=== PATIENT | male | born 1940 | race Caucasian/White ===

== ENCOUNTER → 2017-06-29 | Outpatient (CLI) | payer OTHER, MEDICARE | LOC: BHFA 13:00 | PROVIDERS: ATTEND Internal Medicine Cardiovascular Disease | DX: I25.10 Atherosclerotic heart disease of native coronary artery without angina pectoris (principal); I10 Essential (primary) hypertension ==

== ENCOUNTER 2017-08-30 07:19 | Observation (INO) | payer OTHER, MEDICARE ==
[2017-08-30] MEDS ORDERED: NS 1,000 ML IV ONE (07:23)
--- NOTE | 2017-08-30 07:50 | CPEKG ---
Heart Rate: 84 RR Interval: 714 QRSD Interval: 106 QT Interval: 368 QTC Interval: 436 QRS [place]: 0 T Wave [place]: -73 EKG Severity - ABNORMAL ECG - EKG Impression: AFIB/FLUT AND V-PACED COMPLEXES EKG Impression: NONSPECIFIC T ABNORMALITIES, DIFFUSE LEADS EKG Impression: ATRIAL FIB/FLUTTER IS NEW IN COMPARISON TO PRIOR ECG Electronically Signed By: Tomás Mitchell 02-Sep-2017 08:49:56
[2017-08-30] MEDS ORDERED: LIDOCAINE 1% 300 MG/30 ML SDV ONE (08:14)
[2017-08-30] MEDS ORDERED: HEPARIN 10,000 UNIT/10 ML MDV ONE (08:14)
[2017-08-30] MEDS ORDERED: BUPIVACAINE 0.5% 30 ML SDV ONE (08:14)
[2017-08-30 08:15] LABS: % IMMATURE GRANULYOCYTES 0.3 % (0.0-1.1); ABSOLUTE IMMATURE GRANULOCYTES 0.01 10^3/uL (0.00-0.10); ADD DIFF? NO; ADD MORPH? NO; ADD SCAN? NO; ATYPICAL LYMPHOCYTE FLAG 0 (0-99); FRAGMENT RBC FLAG 0 (0-99); HEMATOCRIT 32.7 % (40.0-51.0); HEMOGLOBIN 10.4 g/dL (13.7-17.5); LEFT SHIFT FLG 0 (0-99); LIPEMIA HEMOLYSIS FLAG 80 (0-99); MEAN CELL HEMOGLOBIN 34.6 pg (27.9-34.1); MEAN CELL HEMOGLOBIN CONCENTR. 31.8 g/dL (32.4-36.7); MEAN CELL VOLUME 108.6 fL (81.5-99.8); MEAN PLATELET VOLUME 9.3 fL (8.7-11.7); PLATELET CLUMPS FLAG 10 (0-99); PLATELET COUNT 111 10^3/uL (150-400); RED BLOOD CELL COUNT 3.01 10^6/uL (4.40-6.38); RED CELL DISTRIBUTION WIDTH 14.8 % (11.5-15.2)
[2017-08-30] MEDS ORDERED: ISOPROTERENOL HCL/D5W 0.2 MG/50 ML BAG IV ONE (08:15)
[2017-08-30 08:24] LABS: INR 1.17 (0.83-1.16); PROTIME(PATIENT) 14.9 SEC (12.0-15.0)
[2017-08-30 08:25] LABS: APTT 38.3 SEC (23.0-38.0)
[2017-08-30 08:30] LABS: ANION GAP 11 mEq/L (8-16); CALCIUM 9.5 mg/dL (8.5-10.4); CARBON DIOXIDE 21 mEq/l (22-31); CHLORIDE 110 mEq/L (97-110); CREATININE 2.5 mg/dL (0.7-1.3); GLOMERULAR FILTRATION RATE 25; GLUCOSE 98 mg/dL (70-100); MAGNESIUM 1.9 mg/dL (1.6-2.3); POTASSIUM 4.4 mEq/L (3.5-5.2); SODIUM 142 mEq/L (134-144)
--- NOTE | 2017-08-30 08:58 | PDANEPAE ---
ANE History of Present Illness a flutter ANE Past Medical History - Cardiovascular History Hx Hypertension: Yes Hx Arrhythmias: Yes Hx Coronary Artery / Peripheral Vascular Disease: Yes - Pulmonary History Hx Sleep Apnea: Yes - Endocrine History Hx Diabetes: Yes - Chronic Pain History Chronic Pain: No ANE Review of Systems Review of Systems: - Exercise capacity METS (RN): 4 METS - Pacemaker Date Pacemaker Last Checked: 05/29/2015 ANE Patient History - Allergies Allergies/Adverse Reactions: No Known Allergies Allergy (Unverified 09/02/14 07:37) - Home Medications Home Medications: Cetirizine [ZyrTEC 10 mg (*)] 10 mg PO DAILY PRN 09/02/14 [Last Taken 05/13/15] Furosemide [Lasix 20 MG (*)] 20 mg PO BID 09/02/14 [Last Taken 05/26/15 18:00] Niacin ER [Niaspan 1000 mg (*)] 1,000 mg PO HS 09/02/14 [Last Taken 05/26/15 22: 00] Olmesartan Medoxomil [Benicar] 40 mg PO DAILY 09/02/14 [Last Taken 05/27/15 06: 00] Pioglitazone HCl [Actos] 45 mg PO DAILY 09/02/14 [Last Taken 05/27/15 06:00] amLODIPine BESYLATE [Norvasc 5 mg (*)] 5 mg PO HS 09/02/14 [Last Taken 05/26/15 22:00] glipiZIDE [Glipizide] 5 mg PO DAILY 09/02/14 [Last Taken 05/26/15 18:00] Insulin Regular, Human [Afrezza] 4 unit IH TIDMEAL 05/27/15 [Last Taken 18:00] Rosuvastatin Calcium [Crestor 20mg (*)] 20 mg PO DAILY18 05/27/15 [Last Taken 18:00] clonIDINE [Catapres (*)] 0.2 mg PO DAILY 05/27/15 [Last Taken 05/26/15 14:00] Apixaban [Eliquis] 2.5 mg PO BID 08/27/17 [Last Taken Unknown] Azelastine [Astelin Nasal [place] (RX)] 1 sprays EACH[place]ARE BID 08/27/17 [Last Taken Unknown] Cholecalciferol Vit D3 [Vitamin D3 (*)] 5,000 units PO DAILY 08/27/17 [Last Taken Unknown] Cyanocobalamin [Vitamin B12 (*)] 1,000 mcg PO DAILY 08/27/17 [Last Taken Unknown ] Herbals/Supplements -Info Only 1 ea PO DAILY 08/27/17 [Last Taken Unknown] Ipratropium 0.03% Nasal [Atrovent 0.03% Nasal (*)] 1 - 2 sprays [place] DAILY PRN 08/27/17 [Last Taken Unknown] Sodium Polystyrene Sulf [Kionex SPS Powder (*)] 1 each PO DAILY 08/27/17 [Last Taken Unknown] - Smoking Hx Smoking Status: Never smoked ANE Labs/Vital Signs - Labs Result Diagrams: 08/30/17 08:09 08/30/17 08:09 - Vital Signs Respiratory Rate: 11 Height: 177.8 cm Weight: 87.3 kg ANE Physical Exam - Airway Neck exam: FROM Mallampati Score: Class 1 Mouth exam: normal dental/mouth exam - Pulmonary Pulmonary: no respiratory distress - Cardiovascular Cardiovascular: regular rate and rhythym - ASA Status ASA Status: III ANE Anesthesia Plan Anesthesia Plan: general endotracheal anesthesia
[2017-08-30] MEDS ORDERED: MIDAZOLAM 2 MG/2 ML VIAL ONE (09:02)
[2017-08-30] MEDS ORDERED: MIDAZOLAM 2 MG/2 ML VIAL IVP ONE (09:23)
--- NOTE | 2017-08-30 09:24 | PDHPUP ---
History & Physical Update H&P update statement: This history and physical update is based on an assessment of the patient which was completed after admission or registration (within 24 hours), but prior to the surgery/procedure. H&P update: H&P reviewed & patient examined, no change in patient's condition since H&P completed
[2017-08-30] MEDS ORDERED: ROCURONIUM 50 MG/5 ML VIAL ONE ×2 (09:38→10:46)
[2017-08-30] MEDS ORDERED: PROPOFOL 200 MG/20 ML VIAL ONE (09:38)
[2017-08-30] MEDS ORDERED: fentaNYL 100 MCG/2 ML INJ ONE (09:38)
[2017-08-30] MEDS ORDERED: PROMETHAZINE HCL 25 MG/ML INJ IVP PRN (12:06)
[2017-08-30] MEDS ORDERED: NALOXONE HCL 0.4 MG/ML INJ IVP PRN (12:06)
[2017-08-30] MEDS ORDERED: HYDROmorphONE/DILAUDID 1 MG/ML INJ IVP PRN (12:06)
[2017-08-30] MEDS ORDERED: fentaNYL 100 MCG/2 ML INJ IVP PRN (12:06)
[2017-08-30] MEDS ORDERED: ONDANSETRON 4 MG/2 ML VIAL IVP PRN (12:06)
--- NOTE | 2017-08-30 12:06 | POSTANESTH ---
Post Anesthetic Evaluation Cardiovascular Status: Normal, Stable Respiratory Status: Normal, Stable Level of Consciousness/Mental Status: Can Participate in Eval Pain Control: Adequate, Prn Tx Ordered Nausea/Vomiting Control: Adequate, Prn Tx Ordered Complications Possibly Related to Anesthesia: None Noted
[2017-08-30] MEDS ORDERED: OXYCODONE/APAP 5/325 TAB PO PRN (12:58)
[2017-08-30] MEDS ORDERED: ACETAMINOPHEN 325 MG TAB PO PRN (12:58)
[2017-08-30] MEDS ORDERED: CETIRIZINE 10 MG TAB PO PRN (13:00)
--- NOTE | 2017-08-30 14:46 | CPEKG ---
Heart Rate: 69 RR Interval: 870 P-R Interval: 148 QRSD Interval: 100 QT Interval: 404 QTC Interval: 433 QRS [place]: 12 T Wave [place]: -74 EKG Severity - ABNORMAL ECG - EKG Impression: ATRIAL-PACED RHYTHM EKG Impression: ABNORMAL T, PROBABLE ISCHEMIA, WIDESPREAD EKG Impression: ATRIAL PACING HAS REPLACED ATRIAL FIB/FLUTTER WITH VENTRICULAR PACING ON PRIOR Electronically Signed By: Tomás Mitchell 02-Sep-2017 08:50:34
[2017-08-30 15:05] LABS: ANION GAP 11 mEq/L (8-16); CALCIUM 9.1 mg/dL (8.5-10.4); CARBON DIOXIDE 20 mEq/l (22-31); CHLORIDE 111 mEq/L (97-110); CREATININE 2.3 mg/dL (0.7-1.3); GLOMERULAR FILTRATION RATE 28; GLUCOSE 101 mg/dL (70-100); MAGNESIUM 1.7 mg/dL (1.6-2.3); POTASSIUM 4.6 mEq/L (3.5-5.2); SODIUM 142 mEq/L (134-144)
[2017-08-30] MEDS: INSULIN REGULAR HUMAN IH SCH (16:36)
[2017-08-30] MEDS: FUROSEMIDE 20 MG TAB PO SCH (16:37)
[2017-08-30] MEDS ORDERED: ROSUVASTATIN CALCIUM 20 MG TAB PO SCH (18:00)
[2017-08-30] MEDS ORDERED: traMADol 50 MG TAB PO PRN (19:10)
[2017-08-30] MEDS: APIXABAN 2.5 MG TAB PO SCH (20:25)
[2017-08-30] MEDS: AZELASTINE NASAL MDI EACHNARE SCH (20:27)
[2017-08-30] MEDS ORDERED: NIACIN ER 1000 MG TAB.ER PO SCH (21:00)
[2017-08-30] MEDS ORDERED: amLODIPine BESYLATE 5 MG TAB PO SCH (21:00)
[2017-08-31 04:53] LABS: % IMMATURE GRANULYOCYTES 0.3 % (0.0-1.1); ABSOLUTE IMMATURE GRANULOCYTES 0.01 10^3/uL (0.00-0.10); ADD DIFF? NO; ADD MORPH? NO; ADD SCAN? NO; ATYPICAL LYMPHOCYTE FLAG 0 (0-99); FRAGMENT RBC FLAG 0 (0-99); HEMATOCRIT 29.7 % (40.0-51.0); HEMOGLOBIN 9.3 g/dL (13.7-17.5); LEFT SHIFT FLG 0 (0-99); LIPEMIA HEMOLYSIS FLAG 80 (0-99); MEAN CELL HEMOGLOBIN 34.3 pg (27.9-34.1); MEAN CELL HEMOGLOBIN CONCENTR. 31.3 g/dL (32.4-36.7); MEAN CELL VOLUME 109.6 fL (81.5-99.8); MEAN PLATELET VOLUME 9.4 fL (8.7-11.7); PLATELET CLUMPS FLAG 0 (0-99); PLATELET COUNT 100 10^3/uL (150-400); RED BLOOD CELL COUNT 2.71 10^6/uL (4.40-6.38); RED CELL DISTRIBUTION WIDTH 14.8 % (11.5-15.2)
[2017-08-31 05:00] LABS: INR 1.32 (0.83-1.16); PROTIME(PATIENT) 16.4 SEC (12.0-15.0)
[2017-08-31 05:32] LABS: ANION GAP 11 mEq/L (8-16); CARBON DIOXIDE 21 mEq/l (22-31); CHLORIDE 109 mEq/L (97-110); CREATININE 2.4 mg/dL (0.7-1.3); GLOMERULAR FILTRATION RATE 26; GLUCOSE 246 mg/dL (70-100); POTASSIUM 4.9 mEq/L (3.5-5.2); SODIUM 141 mEq/L (134-144)
[2017-08-31 05:41] LABS: CREATINE KINASE-MB FRACTION 2.65 ng/mL (0.00-3.19); TROPONIN I 0.982 ng/mL (0.000-0.034)
[2017-08-31] MEDS ORDERED: CARVEDILOL 3.125 MG TAB PO SCH (08:00)
--- NOTE | 2017-08-31 08:22 | EPPROC ---
Electrophysiology Procedure Note: INDICATION: Recurrent atrial flutter PROCEDURES PERFORMED: 12834-71 EP evaluation with RA/RV/LA pace/record, with arrhythmia induction 64572-84 EP evaluation with RA/RV pace record, insert/reposition catheter, with arrhythmia induction 36788 SVT ablation 86522 3D mapping Fluoroscopy Catheters & Anesthesia: The patient arrived in the Electrophysiology Laboratory in the fasting state. KALYN performed . PRIMO clot ruled out. The right clavicular region, right groin, and left groin area were prepped and draped in the usual sterile manner. Anesthesiologist administered general anesthesia. Appropriate non-invasive blood pressure, pulse oximetry and end-tidal CO2 monitoring was established. All catheters were placed percutaneously using the modified Seldinger technique , and advanced into position under fluoroscopic guidance. One #6 Maltese deflectable decapolar catheter was advanced into the CS and another one into the ALRA position via the RFV. Heparin was administered Programmed stimulation was performed from the right atrium, coronary sinus ( left atrium) and right ventricle. On arrival to the Electrophysiology Laboratory the patient was in atrial flutter with isthmus conduction time of 80sec. Entrainment mapping proved typical counterclockwise isthmus dependent atrial flutter. In preparation for ablation of typical atrial flutter, a high-resolution 3D (3 dimensional) Carto electroanatomical map of the sub-Eustachian isthmus and right atrium was obtained during pacing of the posterolateral coronary sinus. A #8 Maltese deflectable quadrapolar electrode catheter (2mm-5mm-2mm spacing) with 3.5 mm irrigated tip electrode and location sensor for the [employer] mapping system was placed in the right atrium. Radiofrequency applications were applied between the tricuspid annulus at 0630 oclock as seen in the NEPALI view and the inferior vena cava. This achieved conduction block across the isthmus Following ablation of the atrial flutter, programmed atrial stimulation was performed in the baseline state and during infusion of isoproterenol 1 mcg/min. No atrial arrhythmias were inducible post ablation. Post ablation, a high-resolution electroanatomical map of the sub-Eustachian isthmus was obtained during pacing of the posterolateral coronary sinus. This confirmed conduction block across the sub-Eustachian isthmus. Bidirectional block was also confirmed by pacing. Isthmus conduction time was 215ms. The catheters were removed. The patient was transferred to the cardiovascular holding area in stable condition. Vascular access sheaths were removed in the holding area. There were no apparent complications. Results: Typical isthmus dependent counterclockwise right atrial flutter Successful ablation of the isthmus Bidirectional block post ablation No induction of Aflutter post ablation CONCLUSIONS: * Cavotricuspid isthmus dependent counterclockwise atrial flutter. * Successful catheter mediated ablation of cavotricuspid isthmus achieving bi- directional conduction block across cavotricuspid isthmus. * No atrial arrhythmias inducible post ablation. * No apparent complications. Patient Problems: Problems Problem Status Onset Bradycardia Acute CKD (chronic kidney disease) Acute Diabetes Acute Hyperkalemia Acute Hypertension Acute Sick sinus syndrome Acute
[2017-08-31 08:43] VITALS: BP 138/57; PULSE 66; RESP 21; TEMP 97.8; O2SAT 96
[2017-08-31] MEDS: FUROSEMIDE 20 MG TAB PO SCH (08:55)
[2017-08-31] MEDS: APIXABAN 2.5 MG TAB PO SCH (08:55)
[2017-08-31] MEDS: AZELASTINE NASAL MDI EACHNARE SCH (08:55)
[2017-08-31] MEDS: INSULIN REGULAR HUMAN IH SCH (08:56)
[2017-08-31] MEDS ORDERED: PIOGLITAZONE HCL 15 MG TAB PO SCH (09:00)
[2017-08-31] MEDS ORDERED: OLMESARTAN MEDOXOMIL 20 MG TAB PO SCH (09:00)
[2017-08-31] MEDS ORDERED: CHOLECALCIFEROL VIT D3 1,000 UNITS TAB PO SCH (09:00)
[2017-08-31] MEDS ORDERED: glipiZIDE 5 MG TAB PO SCH (09:00)
[2017-08-31] MEDS ORDERED: Herbals/Supplements -Info Only PO SCH (09:00)
[2017-08-31] MEDS ORDERED: CYANO/VITAMIN B12 1000 MCG TAB PO SCH (09:00)
[2017-08-31] MEDS ORDERED: SODIUM POLYSTYRENE SULF 454 GM POWDER PO SCH (09:00)
--- NOTE | 2017-08-31 09:01 | CPEKG ---
Heart Rate: 70 RR Interval: 857 P-R Interval: 153 QRSD Interval: 102 QT Interval: 464 QTC Interval: 501 QRS [place]: 23 T Wave [place]: -70 EKG Severity - ABNORMAL ECG - EKG Impression: ATRIAL-PACED COMPLEXES EKG Impression: VENTRICULAR PREMATURE COMPLEX EKG Impression: ABNORMAL T, CONSIDER ISCHEMIA, DIFFUSE LEADS EKG Impression: BORDERLINE PROLONGED QT INTERVAL Electronically Signed By: Tomás Mitchell 02-Sep-2017 08:50:42
--- NOTE | 2017-08-31 10:19 | ECHO ---
[email or web address] [address] [address] Main: [phone] Fax: Transthoracic Echocardiogram Name: AMY MCKEON MR#: [id number] Study Date: 08/31/2017 Study Time: 08:12 AM Date of : 1940 Age: 76 year(s) Height: 177.8 cm (70 in.) Weight: 83.46 kg (184 lb.) BSA: 2.01 m2 Gender: Male Examination: Echo Indication: F/U post EP study Image Quality: Adequate Contrast: Requested by: Jeff Huang BP: 120 mmHg/63 mmHg Heart Rate: Rhythm: Normal sinus rhythm Indication: F/U post EP study Procedure Staff Licensed Reactor Operator: Kacie Bethea Physician: Harry Gerard Requesting Provider: Conclusions: No pericardial effusion normal left ventricular systolic function pacemaker lead in the right heart mild to moderate mitral regurgitation with left atrial dilatation mildly elevated right ventricular systolic pressure with right atrial enlargement and moderate tricuspid regurgitation Measurements: Chambers Valvular Assessment AV/MV Valvular Assessment TV/PV Normal Normal Normal Name Value Range Name Value Range Name Value Range Ao Alanna (MM): 2.9 cm (2.2 cm-3.7 AV Vmax: 2.13 m/s (1 m/s-1.7 TR Vmax: 2.85 mm/s ( - ) cm) m/s) TR PGmax: 32 mmHg ( - ) IVSd (2D): 1.2 cm (0.6 cm-1.1 AV maxP mmHg ( - ) syst. PAP: 42 mmHg ( - ) cm) AV meanP mmHg ( - ) PV Vmax: 1.31 m/s (0.6 m/s-0.9 LVDd (2D): 5.3 cm (4.2 cm-5.9 LVOT Vmax: 1.19 m/s (0.7 m/s-1.1 m/s) cm) m/s) PV PGmax: 7 mmHg ( - ) LVDs (2D): 3.5 cm (2.1 cm-4 TEO (Vmax): 2.1 cm2 ( - ) cm) TEO (VTI): 1.9 cm ( - ) LVPWd (2D): 1.1 cm (0.6 cm-1 MV E Vmax: 1.18 m/s ( - ) cm) MV A Vmax: 0.96 m/s ( - ) LVOTd 2.2 cm 2.2 cm mm MV E/A: 1.23 ( - ) LVEF (BP): 73 % (>=55 %) RVDd(2D): 4.0 cm (1.9 cm-3.8 cmmm) Continued Measurements: Chambers Valvular Assessment AV/MV Valvular Assessment TV/PV Name Value Name Value Name Value Patient: AMY MCKEON Study Date: 08/31/2017 Page 1 of 2 08:12 AM LADs Lon.7 cm MV E/E' Septal: 16.60 CVP (est.): 10 mmHg LA Area: 25.7 cm2 MV E/E' Lateral: 10.50 LA Volume: 91 ml LA Volume Index: 45.3 ml/m2 RA Area: 27.8 cm2 Findings: Left Ventricle: Normal size left ventricle. No LV hypertrophy. Normal global systolic LV function. EF is 73 %. No regional wall motion abnormality. Right Ventricle: Mildly dilated right ventricle. Normal RV function. There is a pacemaker lead noted in the right ventricle. Left Atrium: The left atrium is mildly dilated. Right Atrium: The right atrium is moderately dilated. There is a pacemaker lead noted in the right atrium. Mitral Valve: The mitral valve is normal in appearance and function. There is mild thickening of the mitral valve leaflets. Mild to moderate mitral regurgitation. Aortic Valve: The aortic valve is tri-leaflet. Mild aortic cusp calcification is noted. Trivial-mild aortic valve stenosis. There is no aortic valve regurgitation. Tricuspid Valve: The tricuspid valve is normal in appearance and function. Moderate tricuspid regurgitation is present. The pulmonary artery pressure is mildly increased. Pulmonic Valve: Pulmonary valve not well visualized. Aorta: The aorta is normal. Normal size aortic root measuring 2.9 cm. IVC: No foreign body in inferior vena cava. Pericardium: No pericardial effusion. (No Signature Object) Patient: AMY MCKEON Study Date: 08/31/2017 Page 2 of 2 08:12 AM D:_[id number]
--- NOTE | 2017-08-31 16:26 | ASDISCHSUM ---
Discharge Information Plan Status:Home with No Needs Medically Cleared to Leave:08/31/2017 Discharge Date:08/31/2017 11:40 AM CM D/C Disposition: ADT D/C Disposition:Home, Routine, Self-Care Projected Discharge Date:08/31/2017 12:00 AM Transportation at D/C: Discharge Delay Reason: Follow-Up Date:08/31/2017 12:00 AM Discharge Slot: Final Diagnosis: Placement Information Patient Contact Information Contact Name:BIBIMARITO Relationship: Address:[address] [place] Work Phone: City:[facility] Phone: [facility]/Zip Code:[place] [address] Email: Financial Information Financial Class: Primary Plan Desc:MEDICARE OUTPATIENT Primary Plan Number:[id number] Secondary Plan Desc:[employer]/MDR SUPPLEMENT Secondary Plan Number:[id number] Assessment Information Intervention Information Intervention Type:*MO-Signed Date of Service:08/31/2017 10:49 AM Patient Type:Observation Staff Member:Laury Powers Hours: Discipline: Severity: Comment:
--- NOTE | 2017-08-31 17:13 | GDS ---
[f rep st] DISCHARGE SUMMARY DISCHARGE DIAGNOSES: 1. Persistent atrial flutter, status post electrophysiologic study with typical isthmus-dependent co unterclockwise right atrial flutter, status post successful ablation of the isthmus with achievement of bidirectional block. 2. History of coronary artery disease with coronary artery bypass graft and percutaneous translumina l coronary angioplasty with stenting in 2013. 3. Hypertension. 4. Sick sinus syndrome, status post permanent pacemaker. 5. History of chronic kidney disease. 6. History of atrial fibrillation. 7. History of type 2 diabetes mellitus. 8. History of hypertension. 9. History of dyslipidemia. PROCEDURES: 1. 08/31/2017: EP study with atrial flutter ablation. 2. 08/31/2017: Echocardiogram which showed normal LV systolic function. Pacemaker and lead at the right heart. [id number] MR with left atrial dilation, mildly elevated RVSP with right atrial e nlargement and moderate TR. BRIEF HISTORY: Please see Dr. Huang's dictated H and P for complete details. In brief, the patient i s a 76-year-old male with a history of CAD, bradycardia (status post permanent pacemaker), chronic re nal insufficiency, and type 2 diabetes mellitus, who was noted to have increased atrial flutter recen tly. He proceeded to atrial flutter ablation with Dr. Huang. On day of discharge, he is found to be in sinus rhythm. Right groin site without significant ecchymosis and no bruit auscultated. PHYSICAL EXAMINATION: VITAL SIGNS: On day of discharge, blood pressure 138/57, heart rate 66, respi rations 21, O2 saturation 96% on 3.5 L/min. GENERAL: A very pleasant male in no apparent distress. EYES: PERRL. HEART: Regular rate and rhythm. LUNGS: Clear. Right groin site with minimal ecchy mosis. CBC shows WBC 3.44, hemoglobin 9.3, hematocrit 29.7, and platelet count of 100. BMP with sod ium 141, potassium 4.9, chloride 109, CO2 21, BUN 59, creatinine 2.4, glucose 246. Troponin 0.982 RESULTS PENDING: None. DIET: Per previous. ACTIVITY: Groin precautions were reviewed at length. DISCHARGE MEDICATIONS: Please see med reconciliation. He is being discharged on all his home medica tions, which include clonidine, carvedilol, Kionex, insulin, B12, vitamin D3, apixaban 2.5 p.o. b.i.d ., Atrovent, Zyrtec, Astelin, glipizide, niacin, furosemide, amlodipine, rosuvastatin, Actos, Benicar . FOLLOWUP INSTRUCTIONS: Follow up as scheduled with Dr. Huang in 3 weeks' time. /[id number]/MODL
== END 2017-08-31 11:40 | disposition home or self-care (01) ==
LOC: FCATH 07:19 → F2W 12:59
PROVIDERS: ADMIT Internal Medicine Cardiovascular Disease; ATTEND Internal Medicine Cardiovascular Disease
PROC: 5A1213Z Performance of Cardiac Pacing, Intermittent (ICD-10-PCS; principal; 2017-08-30)
PROC: B245ZZ4 Ultrasonography of Left Heart, Transesophageal (ICD-10-PCS; principal; 2017-08-30)
PROC: 02K83ZZ Map Conduction Mechanism, Percutaneous Approach (ICD-10-PCS; principal; 2017-08-30)
PROC: 4A023FZ Measurement of Cardiac Rhythm, Percutaneous Approach (ICD-10-PCS; principal; 2017-08-30)
PROC: 02583ZZ Destruction of Conduction Mechanism, Percutaneous Approach (ICD-10-PCS; principal; 2017-08-30)
DX: I48.92 Unspecified atrial flutter (principal); I49.5 Sick sinus syndrome; I25.10 Atherosclerotic heart disease of native coronary artery without angina pectoris; N18.3 Chronic kidney disease, stage 3 (moderate); R60.9 Edema, unspecified; I12.9 Hypertensive chronic kidney disease with stage 1 through stage 4 chronic kidney disease, or unspecified chronic kidney disease; I48.91 Unspecified atrial fibrillation; E11.9 Type 2 diabetes mellitus without complications; E78.5 Hyperlipidemia, unspecified; M81.0 Age-related osteoporosis without current pathological fracture; Z79.01 Long term (current) use of anticoagulants; Z95.0 Presence of cardiac pacemaker; Z95.1 Presence of aortocoronary bypass graft; Z95.5 Presence of coronary angioplasty implant and graft
CPT/HCPCS: 93005; 93306; 93312; 93613; 93621; 93653; C1730; C1732; J1644; J2250; J2704; J3010